=== PATIENT | female | born 1960 | race Caucasian/White ===

== ENCOUNTER 2019-03-23 08:56 | Emergency (ER) | payer OTHER ==
[~2019-03-23] VITALS: Ht 167.6 cm; Wt 98.9 kg
[~2019-03-23 08:56] MED LIST: DIPH50CA37 PO; GABA300C PO; SERT50TA PO
--- NOTE | 2019-03-23 09:00 | NUR ---
PT [id number] FRM HOME, ETOH AND SI, +PLAN TO HANG SELF, PT IS AAOX3, NOT IN RESPIRATORY DISTRESS, HOOKED TO MONITOR, V/S STABLE, KEPT RESTED AND COMFORTABLE, WILL CONTINUE TO MONITOR.
--- NOTE | 2019-03-23 09:01 | NUR ---
DR. PARKINSON AT BEDSIDE FOR EVAL.
--- NOTE | 2019-03-23 09:05 | NUR ---
SUICIDAL PRECAUTION INITIATED.
--- NOTE | 2019-03-23 09:10 | NUR ---
URINE SAMPLE COLLECTED AND SENT TO LAB
[2019-03-23] MEDS ORDERED: LORAZEPAM INJ 2 MG/ML VIAL ONE ×2 (09:16→14:12)
--- NOTE | 2019-03-23 09:16 | NUR ---
IV LINE ESTABLISHED, BLOOD DRAWNED AND SENT TO LAB.
[2019-03-23 09:24] LABS: APPEARANCE,URINE Clear (CLEAR); BILIRUBIN,URINE Negative (NEGATIVE); BLOOD, URINE Small Ery/uL (NEGATIVE); COLOR,URINE Yellow (YELLOW); KETONES,URINE >=160 (NEGATIVE); LEUKOCYTE ESTERASE ,URINE Negative (NEGATIVE); NITRITE, URINE Negative (NEGATIVE); PROTEIN,URINE 100 mg/dl (NEGATIVE); UGLUCOSE Negative (NEGATIVE); UROBILINOGEN,URINE 0.2 EU/dL (0.2)
[2019-03-23] MEDS ORDERED: IV NS 0.9% 1,000 ML IV ONE (09:30)
[2019-03-23] MEDS ORDERED: LORAZEPAM INJ 2 MG/ML VIAL IV ONE ×2 (09:30→14:30)
[2019-03-23 09:31] LABS: BASOPHILS % (AUTO) 0.3 % (0.0-2.0); HEMATOCRIT 47 % (33-45); HEMOGLOBIN 16.1 g/dL (11.5-14.8); LYMPHOCYTES # (AUTO) 1.7 /CMM (0.8-4.8); LYMPHOCYTES % (AUTO) 18.3 % (20.0-44.0); MEAN CORPUSCULAR HGB CONC 34 g/dl (31.0-36.0); MEAN CORPUSCULAR VOLUME 92 fL (82-100); MONOCYTES # (AUTO) 0.5 /CMM (0.1-1.30); MONOCYTES % (AUTO) 5.4 % (2.0-12.0); NEUTROPHILS # (AUTO) 7.2 /CMM (1.8-8.9); PLATELET COUNT (AUTO) 276 /CMM (150-450); RED BLOOD CELL COUNT(AUTO) 5.15 MIL/uL (4.0-5.2); WHITE BLOOD COUNT (AUTO) 9.5 K/uL (4.3-11.0)
[2019-03-23 09:34] LABS: SQUAMOUS EPITHELIAL CELL,UR Few /HPF (None Seen)
[2019-03-23 09:35] LABS: BACTERIA,URINE Few /HPF (None Seen); WBC,URINE 0-2 /HPF (0-3)
[2019-03-23 09:38] LABS: CALCIUM, SERUM 8.6 mg/dL (8.5-10.1); CARBON DIOXIDE 15 mmol/L (21-32); CHLORIDE 98 mmol/L (98-107); CREATININE 0.8 mg/dL (0.6-1.3); GLUCOSE 130 mg/dL (74-106); POTASSIUM 3.4 mmol/L (3.5-5.1); SODIUM SERUM 139 mmol/L (136-145); UREA NITROGEN, BLOOD 18 mg/dL (7-18)
[2019-03-23 09:43] LABS: ALANINE AMINOTRANSFERASE 45 U/L (12-78); ALBUMIN 4.1 g/dL (3.4-5.0); ALCOHOL, BLOOD 273 mg/dL (0-0); ALKALINE PHOSPHATASE 74 U/L (46-116); ASPARTATE AMINOTRANSFERASE 41 U/L (15-37); BILIRUBIN,DIRECT 0.1 mg/dL (0.0-0.2); BILIRUBIN,TOTAL 0.6 mg/dL (0.2-1.0); TOTAL PROTEIN, SERUM 7.5 g/dL (6.4-8.2)
[2019-03-23 09:45] LABS: ACETAMINOPHEN < 2 ug/ml (10-30); SALICYLATE < 2.8 mg/dL (2.8-20.0)
--- NOTE | 2019-03-23 10:51 | NUR ---
FLORENTINO ESPINOZA CRISIS TEAM AT BEDSIDE FOR EVAL.
[2019-03-23] MEDS ORDERED: IV NS 0.9% 2,000 ML IV ONE (12:30)
[2019-03-23] MEDS ORDERED: ONDANSETRON HCL/PF 4 MG/2 ML VIAL ONE (14:12)
--- NOTE | 2019-03-23 14:17 | NUR ---
ATIVAN 1MG AND ZOFRAN 4MG IVP GIVEN VERBAL ORDERED BY
[2019-03-23] MEDS ORDERED: ONDANSETRON HCL/PF 4 MG/2 ML VIAL IV ONE (14:30)
[2019-03-23] MEDS ORDERED: IV NS 0.9% 1,000 ML BAG IV ONE (15:00)
[2019-03-23 18:51] VITALS: BP 134/86
--- NOTE | 2019-03-23 19:39 | NUR ---
Pt accepted to [facility], [address], Dr Vasquez. ETA 1 hr. # for report [phone]
--- NOTE | 2019-03-23 20:15 | NUR ---
IV removed. Catheter intact and site benign. Pressure and 4x4 applied to site. No bleeding noted.
--- NOTE | 2019-03-23 20:19 | NUR ---
Report given to Jimmy ESPINOZA for continuation of care.
--- NOTE | 2019-03-23 20:20 | NUR ---
[facility] at bedside for transport to [facility].
[2019-03-23] MEDS ORDERED: LORAZEPAM 1 MG TABLET ONE (20:26)
[2019-03-23] MEDS ORDERED: LORAZEPAM 1 MG TABLET PO ONE (20:30)
== END 2019-03-23 20:42 ==
LOC: ER 08:58
DX: R45.851 Suicidal ideations (principal); F10.10 Alcohol abuse, uncomplicated; E86.0 Dehydration
CPT/HCPCS: 36415; 80048; 80076; 80305; 80307 ×3; 80329; 81001; 85025; 96361; 96374; 96375; 96376; 99285; G0480; J2060 ×2; J2405; J7030 ×3; 81000-TC

== ENCOUNTER 2021-02-20 11:51 | Emergency (ER) | payer OTHER ==
[~2021-02-20] VITALS: Ht 167.6 cm; Wt 97.5 kg
--- NOTE | 2021-02-20 11:55 | NUR ---
The patient is bibra, from home, more depressed than usual, +SI, denies any plan. Denies pain. In room air and denies SOB. Respiration regular and unlabored. Will continue to monitor the patient.
[2021-02-20] MEDS ORDERED: LORAZEPAM 0.5 MG TABLET ONE (12:23)
[2021-02-20] MEDS ORDERED: LORAZEPAM 1 MG TABLET PO ONE ×2 (12:30→17:00)
[2021-02-20 12:41] LABS: BASOPHILS # (AUTO) 0.1 /CMM (0.0-0.2); BASOPHILS % (AUTO) 0.7 % (0.0-2.0); EOSINOPHILS % (AUTO) 0.7 % (0.0-6.0); HEMATOCRIT 47 % (33-45); HEMOGLOBIN 16.1 g/dL (11.5-14.8); LYMPHOCYTES # (AUTO) 2.5 /CMM (0.8-4.8); LYMPHOCYTES % (AUTO) 25.9 % (20.0-44.0); MEAN CORPUSCULAR HGB CONC 34 g/dl (31.0-36.0); MEAN CORPUSCULAR VOLUME 92 fL (82-100); MONOCYTES # (AUTO) 0.4 /CMM (0.1-1.30); MONOCYTES % (AUTO) 4.5 % (2.0-12.0); NEUTROPHILS # (AUTO) 6.5 /CMM (1.8-8.9); NEUTROPHILS % (AUTO) 68.2 % (43.0-81.0); PLATELET COUNT (AUTO) 283 /CMM (150-450); RED BLOOD CELL COUNT(AUTO) 5.13 MIL/uL (4.0-5.2); WHITE BLOOD COUNT (AUTO) 9.6 K/uL (4.3-11.0)
[2021-02-20 12:44] LABS: CALCIUM, SERUM 8.9 mg/dL (8.5-10.1); CREATININE 0.9 mg/dL (0.6-1.3); POTASSIUM 4.2 mmol/L (3.5-5.1)
[2021-02-20 12:51] LABS: ALBUMIN 4.1 g/dL (3.4-5.0); BILIRUBIN,DIRECT 0.1 mg/dL (0.0-0.2); BILIRUBIN,TOTAL 0.4 mg/dL (0.2-1.0); TOTAL PROTEIN, SERUM 7.8 g/dL (6.4-8.2)
[2021-02-20 12:53] LABS: BILIRUBIN,URINE Negative (NEGATIVE); COLOR,URINE YELLOW (YELLOW); LEUKOCYTE ESTERASE ,URINE Negative (NEGATIVE); NITRITE, URINE Negative (NEGATIVE); PH,URINE 5.5 (5.0-8.0); PROTEIN,URINE Negative (NEGATIVE); UGLUCOSE Negative (NEGATIVE); UROBILINOGEN,URINE 0.2 EU/dL (0.2)
[2021-02-20 12:56] LABS: BACTERIA,URINE Few /HPF (None Seen); RBC,URINE 0-2 /HPF (0-2); SQUAMOUS EPITHELIAL CELL,UR Few /HPF (None Seen); WBC,URINE 0-2 /HPF (0-3)
--- NOTE | 2021-02-20 14:44 | NUR ---
CALLED [facility] FOR PRESENTATION OF CASE.
--- NOTE | 2021-02-20 14:50 | NUR ---
Dietary Cook: health services information specialist consult requested for suicidal ideation. Patient is a 60-year-old, female. SW met with patient at her bedside in the emergency department. Patient was alert and oriented x4. Patient presented tearful. Per chart, patient was brought in by ambulance from home on 02/20/21 with complaints of feeling depressed and suicidal. Patient stated that she is currently living alone at [id number] [place] [id number]; [phone]. Patient stated she currently receives HINA. Patient stated that she has been feeling depressed as she is worried about what will happen once her HINA stops in May. SW asked patient if she has access to social support and patient stated that she has support from her daughter, Shira. SW asked patient if she has a history of substance use and patient stated that she drank a whole bottle of tequila yesterday because she was feeling depressed. SW assessed patients history of mental illness and patient stated that she has a history of Depression. Patient stated that she is currently taking Wellbutrin and Gabapentin. Patient stated that she is currently feeling suicidal, without a plan. SW offered the patient outpatient counseling and psychiatric and substance use resources. Patient accepted outpatient counseling and psychiatric resources and declined substance use resources stating that she did not need them. Patient requested voluntary inpatient psychiatric hospitalization at [facility]. ED RN Bryan stated that he will follow up with this discharge plan and contact [facility]. PLAN: ED RN Bryan will contact [facility] for inpatient psychiatric hospitalization. No further SS intervention at this time, however, SW will remain available as needed. RESOURCES: Counseling--Outpatient [facility] [address] [place] [address] [place] [address] (Specializes in in-depth psychotherapy for emotional distress: anxiety, depression, interpersonal conflicts, life transitions, childhood abuse) [facility] [address] [place] [address] (Assist with solving problem marital difficulties, separation & divorce, aging parents, & grief, chronic & terminal illness) [facility] [address] [place] [address] (Deal with loss & grief, anxiety, marital difficulties) [facility] [address] [place] [address] (Provide in-home mental services to people who are incapable of leaving their homes) [facility] [address] [place] [address] Partial Hospitalization Program and Outpatient at [facility] [address] [place], [place] [id number] [facility] [address] [place] [address] PSYCHIATRIC OUTPATIENT SERVICES [facility] Partial Hospitalization and Intensive Outpatient Program (Managed Care and [place] Only)[id number] [facility] [phone] [facility] Partial Hospitalization and Outpatient [id number] [place], [place] [phone] [facility] Partial Hospitalization and Outpatient [id number] [facility]. [place], [place] [phone] [facility] [id number] [place], [place] [phone] [facility] Partial Hospitalization and Outpatient [id number] [facility] HospitalrembertoBUTTE FALL[facility], [phone]
--- NOTE | 2021-02-20 14:58 | NUR ---
[facility] ON PHONE TALKING TO DR WALTER.
--- NOTE | 2021-02-20 15:57 | NUR ---
FLORENTINO RN CALLED FOR PSYCH EVAL. ETA 1 HOUR.
[2021-02-20] MEDS ORDERED: LORAZEPAM 1 MG TABLET ONE (16:43)
--- NOTE | 2021-02-20 16:59 | NUR ---
COVID SWAB DONE AND SENT TO LAB
--- NOTE | 2021-02-20 17:55 | NUR ---
FLORENTINO AT BEDSIDE FOR EVAL
[2021-02-20] MEDS ORDERED: LORA-259 PO (18:12)
--- NOTE | 2021-02-20 18:24 | NUR ---
[facility] CALLED REGARDING PLAN OF CARE. SPOKE TO TRISTA, SUPPLEMENTAL MANAGER. CLOSING CASE. PT IS MEDICALLY/PSYCH CLEARED FOR DISCHARGE. FAMILY AT BEDSIDE.
--- NOTE | 2021-02-20 18:24 | NUR ---
Patient discharged to home in stable condition. Written and verbal after care instructions given. Patient verbalizes understanding of instruction. Pt ambulatory with a steady gait. Pt daughter is at bedside with patient and will be bringing her home.
[2021-02-20 18:34] VITALS: BP 132/73
== END 2021-02-20 18:25 | disposition home or self-care (01) ==
LOC: ER 12:02
DX: Z02.2 Encounter for examination for admission to residential institution (principal); F10.10 Alcohol abuse, uncomplicated; Y90.6 Blood alcohol level of 120-199 mg/100 ml; R45.851 Suicidal ideations; F32.9 Major depressive disorder, single episode, unspecified; G25.81 Restless legs syndrome; Z79.899 Other long term (current) drug therapy; Z20.822 Contact with and (suspected) exposure to COVID-19
CPT/HCPCS: 36415; 80048; 80076; 80143; 80307; 80320 ×2; 81001; 85025; 87426; 99283; C9803; G0480